=== PATIENT | male | born 1970 | race Two or more races ===

== ENCOUNTER 2017-01-20 15:28 | Inpatient (IN) | payer OTHER ==
--- NOTE | 2017-01-20 16:16 | EDM.PDOC ---
ED HPI GENERAL MEDICAL PROBLEM - General Chief Complaint: Behavioral/Psych Stated Complaint: LAW ENFORCEMENT Time Seen by Provider: 01/20/17 15:55 Source of Information: Reports: Patient History Limitations: Reports: No Limitations - History of Present Illness INITIAL COMMENTS - FREE TEXT/NARRATIVE: Patient is a 46-year-old male who presents to ED in PD custody with suicidal ideations and plan in place. Patient states he moved from [place] to [place] one year prior. States over the past 2 months he has not been able to reconcile with his girlfriend. States she will not communicate with him and has a new boyfriend. Patient has no family in [place] and is all alone. [facility] he drinks 10 beers every day has been doing this for 20+ years. States he is an alcoholic and has undergone inpatient treatment approximately 4 years ago. [facility] he has detoxed from alcohol 2-3 times. States when this occurs he becomes tremulous and becomes very anxious. He denies any history of seizures. States last month he tried to hang himself from the shower curtain ally that eventually broke. [facility] he wants to kill himself and has a plan to hang himself again. Last drink was one hour ago. He has no additional past medical history and is currently taking no medications. He has no surgical history as well. [facility] he also smokes one pack per day and utilizes marijuana. He has no primary care provider and works at [employer]. Onset: Unknown/Unsure - Related Data Allergies Allergy/AdvReac Type Severity Reaction Status Date / Time No Known Allergies Allergy Verified 06/27/16 04:42 Home Meds: Home Meds . [No Known Home Meds] 06/27/16 [History] Past Medical History - Past Surgical History HEENT Surgical History: Reports: ADÁN Social & Family History - Tobacco Use Smoking Status *Q: Current Every Day Smoker Years of Tobacco use: 25 Packs/Tins Daily: 1 Used Tobacco, but Quit: No - Caffeine Use Caffeine Use: Reports: Soda - Recreational Drug Use Recreational Drug Use: Yes Drug Use in Last 12 Months: Yes Recreational Drug Type: Reports: Marijuana/Hashish ED ROS GENERAL - Review of Systems Review Of Systems: See Below Constitutional: Reports: No Symptoms HEENT: Denies: Vision Change Respiratory: Reports: No Symptoms Cardiovascular: Reports: No Symptoms GI/Abdominal: Reports: No Symptoms : Reports: No Symptoms Musculoskeletal: Reports: No Symptoms Neurological: Reports: No Symptoms Psychiatric: Reports: Anxiety, Depression, Hallucinations (auditory), Suicidal Ideation. Denies: Homicidal Ideation ED EXAM, BEHAVIORAL HEALTH - Physical Exam Exam: See Below Exam Limited By: Intoxication General Appearance: Alert, WD/WN, No Apparent Distress Eye Exam: Bilateral Eye: EOMI, Nystagmus, PERRL Ears: Hearing Grossly Normal Nose: Normal Inspection Throat/Mouth: Normal Inspection, Normal Oropharynx, Normal Voice, No Airway Compromise Neck: Normal Inspection, Supple Respiratory/Chest: No Respiratory Distress, Lungs Clear, Normal Breath Sounds, No Accessory Muscle Use Cardiovascular: Normal Peripheral Pulses, Regular Rate, Rhythm, No Murmur GI/Abdominal: Normal Bowel Sounds, Soft, Non-Tender, No Organomegaly, No Distention Back Exam: Normal Inspection Extremities: Normal Inspection Neurological: Alert, Normal Mood/Affect, CN II-XII Intact, Normal Cognition, Normal Gait, No Motor/Sensory Deficits, Oriented x 3 Psychiatric: Alert, Normal Affect, Normal Cognition, Normal Mood, Oriented, Suicidal Plan, Suicidal Thoughts. No: Poor Eye Contact, Homicidal Thoughts, Auditory Hallucinations, Visual Hallucinations, Pressured Speech Skin Exam: Warm, Intact, Normal color, No rash COURSE, BEHAVIORAL HEALTH COMP - Course Vital Signs: Last Vital Signs Temp 98.2 F 01/21/17 00:00 Pulse 97 01/21/17 00:00 Resp 22 H 01/21/17 00:00 BP 108/70 01/21/17 00:00 Pulse Ox 96 01/21/17 00:00 Orders, Labs, Meds: Active Orders 24 hr Category Date Time Status Peripheral IV Care [RC] . DIRECTED Care 01/20/17 15:41 Active Sodium Chloride 0.9% [Saline Flush] Med 01/20/17 15:40 Active 10 ml FLUSH ASDIRECTED PRN Peripheral IV Insertion Adult [OM.PC] Stat Oth 01/20/17 15:41 Ordered Medication Orders Chlordiazepoxide HCl (Librium) 25 mg PO TID PRN PRN Reason: Anxiety Last Admin: 01/20/17 20:56 Dose: 25 mg Clonidine HCl (Catapres) 0.1 mg PO Q12HR STEPHEN Last Admin: 01/20/17 20:57 Dose: Not Given Enoxaparin Sodium (Lovenox) 40 mg SUBCUT DAILY [facility] Haloperidol Lactate (Haldol) 1 mg IVPUSH Q8H PRN PRN Reason: restlessness Last Admin: 01/21/17 00:12 Dose: 1 mg Lactated Ringer's (Ringers, Lactated) 1,000 mls @ 100 mls/hr IV ASDIRECTED STEPHEN Stop: 01/21/17 06:00 Lorazepam (Ativan) 1 mg IVPUSH Q6H PRN PRN Reason: Anxiety Last Admin: 01/21/17 00:29 Dose: 1 mg Metoprolol Tartrate (Lopressor) 5 mg IVPUSH Q6H PRN PRN Reason: heart rate>120 Miscellaneous Information (Remove Patch) 1 ea TRDERM DAILY [facility] Nicotine (Habitrol) 21 mg TRDERM DAILY [facility] Nicotine Polacrilex (Nicorelief) 4 mg CHEW Q1H PRN PRN Reason: Other Last Admin: 01/21/17 00:11 Dose: 4 mg Sodium Chloride (Saline Flush) 10 ml FLUSH ASDIRECTED PRN PRN Reason: Keep Vein Open Last Admin: 01/20/17 16:48 Dose: 10 ml Laboratory Tests 01/20/17 01/20/17 01/20/17 Range/Units 16:26 16:26 16:26 WBC 5.49 (4.23-9.07) K/mm3 RBC 5.01 (4.63-6.08) M/mm3 Hgb 16.3 (13.7-17.5) gm/L Hct 47.3 (40.1-51.0) % MCV 94.4 H (79.0-92.2) fl MCH 32.5 H (25.7-32.2) pg MCHC 34.5 (32.2-35.5) g/dl RDW Std Deviation 43.8 (35.1-43.9) fL Plt Count 176 (163-337) K/mm3 MPV 9.5 (9.4-12.3) fl Neut % (Auto) 34.8 (34.0-67.9) % Lymph % (Auto) 52.1 (21.8-53.1) % [place] % (Auto) 9.3 (5.3-12.2) % Eos % (Auto) 3.3 (0.8-7.0) Baso % (Auto) 0.5 (0.1-1.2) % Neut # (Auto) 1.91 (1.78-5.38) K/mm3 Lymph # (Auto) 2.86 (1.32-3.57) K/mm3 [place] # (Auto) 0.51 (0.30-0.82) K/mm3 Eos # (Auto) 0.18 (0.04-0.54) K/mm3 Baso # (Auto) 0.03 (0.01-0.08) K/mm3 PT (8.0-13.0) SECONDS INR Sodium 144 (136-145) mEq/L Potassium 3.9 (3.5-5.1) mEq/L Chloride 106 (98-107) mEq/L Carbon Dioxide 23 (21-32) mEq/L Anion Gap 18.9 H (5-15) BUN 5 L (7-18) mg/dL Creatinine 0.8 (0.7-1.3) mg/dL Est Cr Clr Drug Dosing 111.63 mL/min Estimated GFR (MDRD) > 60 (>60) mL/min BUN/Creatinine Ratio 6.3 L (14-18) Glucose 96 (74-106) mg/dL Calcium 8.7 (8.5-10.1) mg/dL Magnesium 2.2 (1.8-2.4) mg/dl Total Bilirubin 0.2 (0.2-1.0) mg/dL AST 64 H (15-37) U/L ALT 124 H (16-63) U/L Alkaline Phosphatase 96 (46-116) U/L Total Protein 7.3 (6.4-8.2) g/dl Albumin 3.8 (3.4-5.0) g/dl Globulin 3.5 gm/dL Albumin/Globulin Ratio 1.1 (1-2) TSH 3rd Generation 0.617 (0.358-3.74) uIU/mL Ethyl Alcohol 0.30 (0.00) gm% 01/20/17 Range/Units 16:26 WBC (4.23-9.07) K/mm3 RBC (4.63-6.08) M/mm3 Hgb (13.7-17.5) gm/L Hct (40.1-51.0) % MCV (79.0-92.2) fl MCH (25.7-32.2) pg MCHC (32.2-35.5) g/dl RDW Std Deviation (35.1-43.9) fL Plt Count (163-337) K/mm3 MPV (9.4-12.3) fl Neut % (Auto) (34.0-67.9) % Lymph % (Auto) (21.8-53.1) % [place] % (Auto) (5.3-12.2) % Eos % (Auto) (0.8-7.0) Baso % (Auto) (0.1-1.2) % Neut # (Auto) (1.78-5.38) K/mm3 Lymph # (Auto) (1.32-3.57) K/mm3 [place] # (Auto) (0.30-0.82) K/mm3 Eos # (Auto) (0.04-0.54) K/mm3 Baso # (Auto) (0.01-0.08) K/mm3 PT 10.0 (8.0-13.0) SECONDS INR 0.92 Sodium (136-145) mEq/L Potassium (3.5-5.1) mEq/L Chloride (98-107) mEq/L Carbon Dioxide (21-32) mEq/L Anion Gap (5-15) BUN (7-18) mg/dL Creatinine (0.7-1.3) mg/dL Est Cr Clr Drug Dosing mL/min Estimated GFR (MDRD) (>60) mL/min BUN/Creatinine Ratio (14-18) Glucose (74-106) mg/dL Calcium (8.5-10.1) mg/dL Magnesium (1.8-2.4) mg/dl Total Bilirubin (0.2-1.0) mg/dL AST (15-37) U/L ALT (16-63) U/L Alkaline Phosphatase (46-116) U/L Total Protein (6.4-8.2) g/dl Albumin (3.4-5.0) g/dl Globulin gm/dL Albumin/Globulin Ratio (1-2) TSH 3rd Generation (0.358-3.74) uIU/mL Ethyl Alcohol (0.00) gm% Medications Generic Name Dose Route Start Last Admin Trade Name Freq PRN Reason Stop Dose Admin Chlordiazepoxide HCl 25 mg 01/20/17 20:20 01/20/17 20:56 Librium PO 25 mg TID PRN Administration Anxiety Clonidine HCl 0.1 mg 01/20/17 21:00 01/20/17 20:57 Catapres PO Not Given Q12HR [facility] Enoxaparin Sodium 40 mg 01/21/17 09:00 Lovenox SUBCUT DAILY STEPHEN Haloperidol Lactate 1 mg 01/20/17 20:30 01/21/17 00:12 Haldol IVPUSH 1 mg Q8H PRN Administration restlessness Lactated Ringer's 1,000 mls @ 100 mls/hr 01/20/17 20:30 Ringers, Lactated IV 01/21/17 06:00 ASDIRECTED STEPHEN Lorazepam 1 mg 01/20/17 20:30 01/21/17 00:29 Ativan IVPUSH 1 mg Q6H PRN Administration Anxiety Metoprolol Tartrate 5 mg 01/20/17 20:18 Lopressor IVPUSH Q6H PRN heart rate>120 Miscellaneous Information 1 ea 01/21/17 09:00 Remove Patch TRDERM DAILY [facility] Nicotine 21 mg 01/21/17 09:00 Habitrol TRDERM DAILY [facility] Nicotine Polacrilex 4 mg 01/21/17 00:02 01/21/17 00:11 Nicorelief CHEW 4 mg Q1H PRN Administration Other Sodium Chloride 10 ml 01/20/17 15:40 01/20/17 16:48 Saline Flush FLUSH 10 ml ASDIRECTED PRN Administration Keep Vein Open Discontinued Medications Generic Name Dose Route Start Last Admin Trade Name Daveq PRN Reason Stop Dose Admin Sodium Chloride 2,000 mls @ 500 mls/hr 01/20/17 16:31 01/20/17 20:56 Normal Saline IV 01/20/17 20:30 Infused ONETIME ONE Infusion Magnesium Sulfate 2 gm/ Premix 50 mls @ 25 mls/hr 01/20/17 20:24 01/20/17 20: 56 IV 01/20/17 22:23 25 mls/hr ONETIME ONE Administration Lorazepam 1 mg 01/20/17 16:30 01/20/17 16:47 Ativan IVPUSH 01/20/17 16:31 1 mg ONETIME ONE Administration Lorazepam 2 mg 01/20/17 20:19 Ativan IVPUSH Q8H PRN Anxiety Nicotine 21 mg 01/21/17 00:04 01/21/17 00:12 Habitrol TRDERM 01/21/17 00:05 21 mg ONETIME ONE Administration Re-Assessment/Re-Exam: Ordered a peripheral IV. Initial labs and studies include CBC, C14, TSH, ETOH, MG, PT/INR, and Urine Drug Tox. Ordered ativan 1mg IVP and NS 500mls/hr. 1647 EKG revealed sinus rhythm and his rate is 73 MO interval [address] elevation on a normal early repolarization pattern. No additional findings noted. White blood cell count 5.49, hemoglobin 16.3, platelets 176, sodium 144, potassium 3.9, creatinine 0.8, glucose 96, AST 64, ALT 24, TSH 0.617, ETOH 0.30. 1844 Dr. Cheema is in the E.D. I have discussed patient with her. She will see the patient. 1934 She has agreed to admit the patient to ICU. Departure - Departure Time of Disposition: 19:35 Disposition: Admitted As Inpatient 66 Condition: fair Clinical Impression: Suicidal ideations, Alcohol abuse - Discharge Information - My Orders Last 24 Hours: My Active Orders 01/20/17 15:40 Sodium Chloride 0.9% [Saline Flush] 10 ml FLUSH ASDIRECTED PRN 01/20/17 15:41 Peripheral IV Care [RC] . DIRECTED Peripheral IV Insertion Adult [OM.PC] Stat - Assessment/Plan Last 24 Hours: My Active Orders 01/20/17 15:40 Sodium Chloride 0.9% [Saline Flush] 10 ml FLUSH ASDIRECTED PRN 01/20/17 15:41 Peripheral IV Care [RC] . DIRECTED Peripheral IV Insertion Adult [OM.PC] Stat
[2017-01-20] MEDS ORDERED: LORazepam 2 MG/ML MDV IVPUSH ONE (16:30)
[2017-01-20] MEDS ORDERED: Sodium Chloride 0.9% 2,000 ML IV ONE (16:31)
[2017-01-20] MEDS: Sodium Chloride 0.9% 10 ML Syringe FLUSH PRN (16:48)
--- NOTE | 2017-01-20 20:13 | PCM.HP ---
H&P History of Present Illness - General Date of Service: 01/20/17 Admit Problem/Dx: Admission Diagnosis/Problem Admission Diagnosis/Problem Alcohol abuse Source of Information: Patient, Provider History Limitations: Reports: No Limitations - History of Present Illness Initial Comments - Free Text/Narative: 46 year old male with relationship difficulties, ETOH abuse/dependence presented to ED in Police Custody after stating that he tried to hurt himself. He has been scheduled for an evaluation by Dr Velásquez, and a request for the substance abuse counselor will be made for this weekend. Expeditious evaluation is sought for treatment, the patient stated that he wanted help in the ED. An involuntary commitment was initially discussed in the ED, this was not completed. Thus ETOH withdrawal and subsequent treatment will be initiated. He is originally from [place], has lived extensively in [place], [place]. He is currently working in [place], [place] with minimal emotional support. He has attempted suicide by trying to hang from a shower ally; on presentation today, he mentioned that he wanted to kill himself because he has had trouble with his current girlfriend. He has a history of substnace abuse with ETOH and marijuana. ETOH level at the time of presentation, 0.33. UDS is presumptively positive. The patient has previously had IP treatment. Denies blacking out, or alcohol withdrawal seizures. Onset of Symptoms: Reports: Sudden Symptom Onset Date: 01/20/17 Duration of Symptoms: Reports: Hour(s):, Getting Worse Location: Reports: Generalized Quality: Reports: Same as Previous Episode Improves with: Reports: Medication Worsens with: Reports: None Associated Symptoms: Reports: Confusion, Other (depression/anxiety) - Related Data Allergies/Adverse Reactions: Allergies Allergy/AdvReac Type Severity Reaction Status Date / Time No Known Allergies Allergy Verified 06/27/16 04:42 Home Medications: Home Meds . [No Known Home Meds] 06/27/16 [History] Past Medical History - Past Surgical History HEENT Surgical History: Reports: ADÁN Social & Family History - Tobacco Use Smoking Status *Q: Current Every Day Smoker Years of Tobacco use: 25 Packs/Tins Daily: 1 Used Tobacco, but Quit: No - Caffeine Use Caffeine Use: Reports: Soda - Recreational Drug Use Recreational Drug Use: Yes Drug Use in Last 12 Months: Yes Recreational Drug Type: Reports: Marijuana/Hashish H&P Review of Systems - Review of Systems: Review Of Systems: See Below General: Reports: No Symptoms HEENT: Reports: No Symptoms Pulmonary: Reports: No Symptoms Cardiovascular: Reports: Palpitations Gastrointestinal: Reports: No Symptoms Genitourinary: Reports: No Symptoms Musculoskeletal: Reports: No Symptoms Skin: Reports: No Symptoms Psychiatric: Reports: Depression, Mood Lability, Anxiety, Hallucinations ( auditory), Suicidal Ideation Neurological: Reports: No Symptoms, Dizziness Hematologic/Lymphatic: Reports: No Symptoms Immunologic: Reports: No Symptoms Exam - Exam Exam: See Below - Vital Signs Vital Signs: Last Vital Signs Temp 36.2 C 01/20/17 15:29 Pulse 87 01/20/17 15:29 Resp 16 01/20/17 15:29 BP 125/71 01/20/17 15:29 Pulse Ox 97 01/20/17 15:29 Weight: 76.204 kg - Exam Quality Assessment: Supplemental Oxygen, DVT Prophylaxis General: Alert, Oriented, Cooperative, Mild Distress HEENT: Conjunctiva Clear, Nares Patent, Normal Nasal Septum, Pupils Equal, Pupils Reactive Neck: Supple, Trachea Midline Lungs: Normal Respiratory Effort, Decreased Breath Sounds Cardiovascular: Regular Rate, Tachycardia Abdomen: Normal Bowel Sounds, Soft (Male) Exam: Deferred Rectal (Males) Exam: Deferred Back Exam: Normal Inspection Extremities: Normal Pulses Skin: Warm Neurological: Cranial Nerves Intact, Reflexes Equal Bilateral, Strength Equal Bilateral, Normal Speech Neuro Extensive - Mental Status: Alert, Oriented x3 Neuro Extensive - Motor, Sensory, Reflexes: CN II-XII Intact Psychiatric: Alert, Anxious, Depressed, Hallucinations, Withdrawal Symptoms - Patient Data Result Diagrams: 01/21/17 05:35 01/21/17 05:35 *Q Meaningful Use (ADM) - VTE *Q VTE Criteria *Q: - Stroke *Q Stroke Criteria *Q: - AMI *Q AMI Criteria *Q: - Problem List (1) Anxiety and depression SNOMED Code(s): 769944300 ICD Code: F41.9 - ANXIETY DISORDER, UNSPECIFIED; F32.9 - MAJOR DEPRESSIVE DISORDER, SINGLE EPISODE, UNSPECIFIED Status: Acute Current Visit: Yes (2) Alcohol abuse SNOMED Code(s): 60579962 ICD Code: F10.10 - ALCOHOL ABUSE, UNCOMPLICATED Status: Acute Current Visit: Yes (3) Suicidal ideations SNOMED Code(s): 3527165, 212278400 ICD Code: R45.851 - SUICIDAL IDEATIONS Status: Acute Current Visit: Yes (4) Marijuana abuse SNOMED Code(s): 29080855 ICD Code: F12.10 - CANNABIS ABUSE, UNCOMPLICATED Status: Acute Current Visit: Yes Problem List Initiated/Reviewed/Updated: Yes Orders Last 24hrs: Medication Orders Sodium Chloride (Normal Saline) 2,000 mls @ 500 mls/hr IV ONETIME ONE Stop: 01/20/17 20:30 Last Admin: 01/20/17 16:47 Dose: 500 mls/hr Sodium Chloride (Saline Flush) 10 ml FLUSH ASDIRECTED PRN PRN Reason: Keep Vein Open Last Admin: 01/20/17 16:48 Dose: 10 ml Assessment/Plan Comment:: Impression: ETOH Dependence, withdrawal symptom with suicidal ideation and auditory hallucinations Marijuana Dependence Anxiety/Depression Tobacco Dependence Plan: IVF CIWA protocol Anti-anxiety meds, scheduled and prn Electrolyte replacement as needed. Suicide precaution Habitrol SW/PT/OT SA/Psych evaulations DVT/GI prophylaxis
[2017-01-20] MEDS ORDERED: Metoprolol Tartrate 5 MG/5 ML SDV IVPUSH PRN (20:18)
[2017-01-20] MEDS ORDERED: LORazepam 2 MG/ML MDV IVPUSH PRN (20:19)
[2017-01-20] MEDS ORDERED: Magnesium Sulfate/Water 2 GM in Premix Bag 1 BAG IV ONE (20:24)
[2017-01-20] MEDS ORDERED: Haloperidol Lactate 5 MG/ML SDV IVPUSH PRN (20:30)
[2017-01-20] MEDS ORDERED: Lactated Ringers 1,000 ML IV SCH (20:30)
[2017-01-20] MEDS: chlordiazePOXIDE 25 MG Cap PO PRN (20:56)
[2017-01-20] MEDS: cloNIDine 0.1 MG Tab PO SCH (20:57)
[2017-01-21] MEDS ORDERED: Nicotine Polacrilex 2 MG Gum CHEW PRN (00:02)
[2017-01-21] MEDS ORDERED: Nicotine 21 MG/24 Hr Patch TRDERM ONE (00:04)
[2017-01-21] MEDS: LORazepam 2 MG/ML MDV IVPUSH PRN ×2 (00:29→02:40)
[2017-01-21] MEDS ORDERED: Temazepam 15 MG Cap PO PRN (02:25)
[2017-01-21] MEDS ORDERED: LORazepam 2 MG/ML MDV IVPUSH PRN (02:25)
[2017-01-21] MEDS: chlordiazePOXIDE 25 MG Cap PO PRN (08:07)
[2017-01-21] MEDS: cloNIDine 0.1 MG Tab PO SCH ×2 (08:08→17:15)
[2017-01-21] MEDS: Enoxaparin 40 MG/0.4 ML Syringe SUBCUT SCH (08:08)
[2017-01-21] MEDS: Nicotine 21 MG/24 Hr Patch TRDERM SCH (08:08)
[2017-01-21] MEDS: QUEtiapine 25 MG Tab PO SCH ×2 (11:31→20:56)
[2017-01-21] MEDS: Folic Acid 1 MG Tab PO SCH (11:31)
[2017-01-21] MEDS: FLUoxetine 20 MG Cap PO SCH (11:32)
[2017-01-21] MEDS: Topiramate 25 MG Tab PO SCH ×2 (11:32→20:48)
--- NOTE | 2017-01-21 15:25 | PCM.PN ---
- General Info Date of Service: 01/21/17 Functional Status: Reports: pain controlled, tolerating diet, ambulating, urinating - Review of Systems General: Reports: No Symptoms HEENT: Reports: no symptoms Pulmonary: Reports: no symptoms Cardiovascular: Reports: No Symptoms Gastrointestinal: Reports: No symptoms Genitourinary: Reports: no symptoms Musculoskeletal: Reports: no symptoms Skin: Reports: no symptoms Neurological: Reports: No Symptoms Psychiatric: Reports: depression - Patient Data Vitals - most recent: Last Vital Signs Temp 36.6 C 01/21/17 12:00 Pulse 93 01/21/17 12:00 Resp 22 H 01/21/17 12:00 BP 151/88 H 01/21/17 12:00 Pulse Ox 100 01/21/17 12:00 Weight - most recent: 76.204 kg I&O - last 24 hours: Intake & Output 01/21/17 01/21/17 01/21/17 06:59 14:59 22:59 Intake Total 2000 800 Output Total 1250 Balance 750 800 Lab Results last 24 hrs: Laboratory Results - last 24 hr 01/20/17 01/21/17 01/21/17 Range/Units 20:41 05:35 05:35 WBC 5.40 (4.23-9.07) K/mm3 RBC 4.51 L (4.63-6.08) M/mm3 Hgb 14.8 (13.7-17.5) gm/L Hct 43.4 (40.1-51.0) % MCV 96.2 H (79.0-92.2) fl MCH 32.8 H (25.7-32.2) pg MCHC 34.1 (32.2-35.5) g/dl RDW Std Deviation 45.1 H (35.1-43.9) fL Plt Count 181 (163-337) K/mm3 MPV 9.8 (9.4-12.3) fl Neut % (Auto) 55.4 (34.0-67.9) % Lymph % (Auto) 33.0 (21.8-53.1) % Jerome % (Auto) 9.1 (5.3-12.2) % Eos % (Auto) 1.7 (0.8-7.0) Baso % (Auto) 0.6 (0.1-1.2) % Neut # (Auto) 3.00 (1.78-5.38) K/mm3 Lymph # (Auto) 1.78 (1.32-3.57) K/mm3 Jerome # (Auto) 0.49 (0.30-0.82) K/mm3 Eos # (Auto) 0.09 (0.04-0.54) K/mm3 Baso # (Auto) 0.03 (0.01-0.08) K/mm3 Sodium 143 (136-145) mEq/L Potassium 4.0 (3.5-5.1) mEq/L Chloride 109 H (98-107) mEq/L Carbon Dioxide 23 (21-32) mEq/L Anion Gap 15.0 (5-15) BUN 7 (7-18) mg/dL Creatinine 0.9 (0.7-1.3) mg/dL Est Cr Clr Drug Dosing 99.22 mL/min Estimated GFR (MDRD) > 60 (>60) mL/min BUN/Creatinine Ratio 7.8 L (14-18) Glucose 81 (74-106) mg/dL Calcium 8.0 L (8.5-10.1) mg/dL Magnesium 2.2 (1.8-2.4) mg/dl Urine Opiates Screen Negative (NEGATIVE) Ur Buprenorphine Scrn Negative (NEGATIVE) Ur Oxycodone Screen Negative (NEGATIVE) Urine Methadone Screen Negative (NEGATIVE) Ur Propoxyphene Screen Negative (NEGATIVE) Ur Barbiturates Screen Negative (NEGATIVE) Ur Tricyclics Screen Negative (NEGATIVE) Ur Phencyclidine Scrn Negative (NEGATIVE) Ur Amphetamine Screen Negative (NEGATIVE) U Methamphetamines Scrn Negative (NEGATIVE) U Benzodiazepines Scrn Negative (NEGATIVE) U Cocaine Metab Screen Negative (NEGATIVE) U Marijuana (THC) Screen Presumptive positive H (NEGATIVE) Ethyl Alcohol 0.01 (0.00) gm% Med Orders - Current: Current Medications Chlordiazepoxide HCl (Librium) 25 mg PO TID PRN PRN Reason: Anxiety Last Admin: 01/21/17 08:07 Dose: 25 mg Clonidine HCl (Catapres) 0.1 mg PO Q12HR STEPHEN Last Admin: 01/21/17 08:08 Dose: 0.1 mg Enoxaparin Sodium (Lovenox) 40 mg SUBCUT DAILY STEPHEN Last Admin: 06/03/17 08:08 Dose: 40 mg Fluoxetine HCl (Prozac) 20 mg PO DAILY [facility] Last Admin: 01/21/17 11:32 Dose: 20 mg Folic Acid (Folic Acid) 1 mg PO DAILY [facility] Last Admin: 01/21/17 11:31 Dose: 1 mg Haloperidol Lactate (Haldol) 1 mg IVPUSH Q8H PRN PRN Reason: restlessness Last Admin: 01/21/17 00:12 Dose: 1 mg Lorazepam (Ativan) 1 mg IVPUSH Q6H PRN PRN Reason: Anxiety Last Admin: 01/21/17 02:40 Dose: 1 mg Lorazepam (Ativan) 1 mg IVPUSH Q2H PRN PRN Reason: Withdrawal Symptoms Last Admin: 01/21/17 14:20 Dose: 1 mg Metoprolol Tartrate (Lopressor) 5 mg IVPUSH Q6H PRN PRN Reason: heart rate>120 Miscellaneous Information (Remove Patch) 1 ea TRDERM DAILY [facility] Last Admin: 01/21/17 11:32 Dose: 1 ea Nicotine (Habitrol) 21 mg TRDERM DAILY [facility] Last Admin: 01/21/17 08:08 Dose: 21 mg Nicotine Polacrilex (Nicorelief) 4 mg CHEW Q1H PRN PRN Reason: Other Last Admin: 01/21/17 00:11 Dose: 4 mg Quetiapine Fumarate (Seroquel) 50 mg PO BEDTIME [facility] Last Admin: 01/21/17 11:31 Dose: 50 mg Sodium Chloride (Saline Flush) 10 ml FLUSH ASDIRECTED PRN PRN Reason: Keep Vein Open Last Admin: 01/20/17 16:48 Dose: 10 ml Temazepam (Restoril) 15 mg PO BEDTIME PRN PRN Reason: Insomnia Thiamine HCl (Vitamin B-1) 100 mg PO BEDTIME [facility] Topiramate (Topamax) 25 mg PO BID STEPHEN Stop: 01/27/17 21:01 Last Admin: 01/21/17 11:32 Dose: 25 mg Topiramate (Topamax) 50 mg PO BID [facility] Discontinued Medications Sodium Chloride (Normal Saline) 2,000 mls @ 500 mls/hr IV ONETIME ONE Stop: 01/20/17 20:30 Last Infusion: 01/20/17 20:56 Dose: Infused Magnesium Sulfate 2 gm/ Premix 50 mls @ 25 mls/hr IV ONETIME ONE Stop: 01/20/17 22:23 Last Admin: 01/20/17 20:56 Dose: 25 mls/hr Lactated Ringer's (Ringers, Lactated) 1,000 mls @ 100 mls/hr IV ASDIRECTED STEPHEN Stop: 01/21/17 06:00 Lorazepam (Ativan) 1 mg IVPUSH ONETIME ONE Stop: 01/20/17 16:31 Last Admin: 01/20/17 16:47 Dose: 1 mg Lorazepam (Ativan) 2 mg IVPUSH Q8H PRN PRN Reason: Anxiety Nicotine (Habitrol) 21 mg TRDERM ONETIME ONE Stop: 01/21/17 00:05 Last Admin: 01/21/17 00:12 Dose: 21 mg - Exam Quality Assessment: supplemental oxygen, DVT prophylaxis General: alert, oriented, cooperative, no acute distress HEENT: Pupils equal, Pupils reactive, EOMI Neck: supple, trachea midline, no JVD Lungs: Clear to auscultation, Normal respiratory effort Cardiovascular: Regular Rate, Regular Rhythm Abdomen: bowel sounds present, soft, no tenderness, no distension (Male) Exam: Deferred Back Exam: Normal Inspection Extremities: normal pulses Skin: warm Neurological: no new focal deficit, normal gait, normal speech Psy/Mental Status: alert, depressed - Problem List & Annotations (1) Anxiety and depression SNOMED Code(s): 925615529 Code(s): F41.9 - ANXIETY DISORDER, UNSPECIFIED; F32.9 - MAJOR DEPRESSIVE DISORDER, SINGLE EPISODE, UNSPECIFIED Status: Acute Current Visit: Yes (2) Alcohol abuse SNOMED Code(s): 22365352 Code(s): F10.10 - ALCOHOL ABUSE, UNCOMPLICATED Status: Acute Current Visit: Yes (3) Suicidal ideations SNOMED Code(s): 6204812, 878799000 Code(s): R45.851 - SUICIDAL IDEATIONS Status: Acute Current Visit: Yes (4) Marijuana abuse SNOMED Code(s): 81484282 Code(s): F12.10 - CANNABIS ABUSE, UNCOMPLICATED Status: Acute Current Visit: Yes - Problem List Review Problem List Initiated/Reviewed/Updated: Yes - My Orders Last 24 Hours: My Active Orders 01/20/17 20:14 Activity as Tolerated [RC] .Routine Vital Signs [RC] Q4HR 06/02/17 20:15 CIWAA Assessment [RC] Q1HR Suicide Precautions BH [BH] Routine Code Status [Resuscitation Status] Routine 01/20/17 20:17 Notify Provider Consults [RC] ASDIRECTED 01/20/17 20:18 Metoprolol Tartrate [Lopressor] 5 mg IVPUSH Q6H PRN 01/20/17 20:20 chlordiazePOXIDE [Librium] 25 mg PO TID PRN 01/20/17 20:27 Antiembolic Devices [RC] PER UNIT ROUTINE LEYLA Hose [Antiembolic Hose] [OM.PC] Routine 01/20/17 20:30 Haloperidol Lactate [Haldol] 1 mg IVPUSH Q8H PRN LORazepam [Ativan] 1 mg IVPUSH Q6H PRN 01/20/17 21:00 cloNIDine [Catapres] 0.1 mg PO Q12HR 01/21/17 00:02 Nicotine Polacrilex [Nicorelief] 4 mg CHEW Q1H PRN 01/21/17 02:25 LORazepam [Ativan] 1 mg IVPUSH Q2H PRN Temazepam [Restoril] 15 mg PO BEDTIME PRN 01/21/17 09:00 Consult to Physician [CONS] Routine Enoxaparin [Lovenox] 40 mg SUBCUT DAILY Nicotine [Habitrol] 21 mg TRDERM DAILY Remove Patch 1 ea TRDERM DAILY 01/21/17 10:00 Consult for Substance Abuse [CONS] Routine 01/21/17 Breakfast Regular Diet [DIET] 01/22/17 05:00 BMP [BASIC METABOLIC PANEL,BMP] [CHEM] DAILY CBC WITH AUTO DIFF [HEME] DAILY MAGNESIUM [CHEM] DAILY 01/23/17 05:00 BMP [BASIC METABOLIC PANEL,BMP] [CHEM] DAILY CBC WITH AUTO DIFF [HEME] DAILY MAGNESIUM [CHEM] DAILY 01/24/17 05:00 BMP [BASIC METABOLIC PANEL,BMP] [CHEM] DAILY CBC WITH AUTO DIFF [HEME] DAILY MAGNESIUM [CHEM] DAILY 01/28/17 09:00 Topiramate [Topamax] 50 mg PO BID - Plan Plan:: Impression: ETOH Dependence, withdrawal symptom with suicidal ideation and auditory hallucinations Marijuana Dependence Anxiety/Depression-new meds per Dr Velásquez Tobacco Dependence Plan: IVF CIWA protocol Anti-anxiety meds, scheduled and prn Electrolyte replacement as needed. Suicide precaution Habitrol SW/PT/OT SA-await consult/Psych evaluations DVT/GI prophylaxis
--- NOTE | 2017-01-21 17:51 | CONS ---
CONSULTING PHYSICIAN: Hussain Velásquez MD DATE OF CONSULTATION: 01/21/2017 Date of service for this 60 minute inpatient clinical event is 01/21/2017. IDENTIFICATION: The patient is a 46-year-old male, who was admitted to the MICU at [facility] in [place], [place] on 01/20/2017. He is seen for psychiatric evaluation. CHIEF COMPLAINT: "I got depression." HISTORY OF PRESENT ILLNESS: The patient is a 46-year-old male who reports he has been struggling with depressed mood "off and on for the past 4 years." The patient states that he has recently been having relationship problems with girlfriend who lived down in [place]. He states that complicating this clinical situation is the fact that he has been drinking "about 10 beers a day." He is smoking "about 3 joints a day." The patient states he has been in treatment in the past, but his longest sobriety has been for about 2 weeks. He does have some mood swings. He has quite a bit of anxiety and he reports racing thoughts and ruminations. He states he sleeps poorly and can not get more than 6 hours of sleeps per 24-hour period. He does not feel this is enough for him. He states before he was admitted yesterday, he was feeling suicidal and this was one of the main reasons that he was admitted. He is denying any suicidal or homicidal at this point in time, but he does state that he tried to hang himself about a month ago "but the rope broke." He again is denying any suicidal now and he states that when he has relationship problems, he tends to drink and when he drinks, the suicidal thoughts are worse. The patient is stating that he had been on medications in the past and the doctors who put him on the medication in the past did feel that it helped him with his depression, but he can't remember what medications he was taking. He is open to try medications for his mood and he is open to getting help for treatment. He states he was hospitalized psychiatrically in the past and he does not want inpatient psychiatric hospitalization or inpatient treatment because he felt it made him worse and he also wants to keep his job at the local [employer] where he has been working for the past year. He states he is open to outpatient chemical dependency treatment if this is possible. He denies having any weapons at his house. He states that he generally has good energy and good interest levels despite his struggles with depression. On admission, his BAL was approximately 0.33 according to staff report and it is down to 0.1 at this point in time. The patient does report a past detox admission for excessive alcohol use. MEDICATIONS: At the time of presentation, none. ALLERGIES: No known drug allergies. PAST MEDICAL HISTORY: The patient denies. REVIEW OF SYSTEMS: Negative at this point in time for acute difficulties involving GI, , pulmonary, cardiac, endocrine, blood, immune, skin, muscular, and nervous systems. FAMILY PSYCHIATRIC AND CD HISTORY: Positive for alcoholism in biological father. Also, maternal grandfather and maternal uncles struggled with alcoholism. PAST PSYCHIATRIC AND CD HISTORY: The patient reports 2 psychiatric hospitalizations in the past. Last one being in 2013 in [place], [place]. He reports 2 chemical dependency treatments in the past. One detox admission back in 2012, done in the [place] as well. Reports 1 suicide attempt by hanging but the rope broke. He states this was about a month ago in the phase of alcohol intoxication. He states his longest sobriety from alcohol has been 2 weeks. He states he has been able stay away for years from marijuana. Denies any self-injurious behaviors or eating disorder history. He states he has never been to AA in the past. He does report a positive psychiatric medication history but could not remember the names of the psych medications he tried in the past and whether they worked or not although he states that providers who were helping him at that time, did feel that he had improved on the psychiatric medications. SOCIAL HISTORY: The patient is born and raised in [place], [place]. He has 5 siblings. His parents when the patient was 10 years of age. He stayed with his mother. Father worked for the [employer] in [place]. Mother was a nurse. The patient's highest level of education was some college courses. 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 He is x1, , had been in a long-term relationship for about 17 years that ended and he has been in current relationship for about 3 years. He has 1 daughter from his marriage. He is currently living by himself in [place], [place] for the past year. He was in the [employer] for 3 years. He received an other than honorable discharge according to his report. Denies any legal difficulties at this point in time. He is Jehovah'S Witness in terms of his tima formation, enjoys watching TV, surfing the Internet, and listen to music in his spare time. MENTAL STATUS EXAMINATION: The patient is a 46-year-old male, in no apparent distress. Speech is of regular rate and rhythm. The patient is cognitively oriented. Psychomotor activities within normal limits. There is no abnormal motor movements or tics observed. Gait and station are not observed. This patient is sitting on the side of the bed for the interview. Mood is depressed. Affect is consistent with stated mood restricted, but cooperative overall for the purposes of the inpatient psychiatric consult. There is no behavioral or stated evidence of acute suicidal or homicidal ideation. No acute psychotic, delusional, or paranoid symptoms. Thought processes are significant for racing thoughts and ruminations, but there is no acute manic symptoms or loose associations evident. Judgment and insight appear unimpaired at this point in time. Motivation for help appears fair to good. VITAL SIGNS: 144/87, 85, 20, 98.4 degrees. IMPRESSION: Pfeifer I. 1. Alcohol dependence, F10.20. 2. Major depressive disorder, recurrent, F33.3. 3. Anxiety disorder, NOS, F41.9. 4. Cannabis abuse versus dependence. 5. Rule out bipolar affect disease, mixed type. Pfeifer II: None. Pfeifer III: Rule out alcohol withdrawal symptoms. Pfeifer IV: Severe. Pfeifer V: 50. PLAN: 1. Sobriety. 2. AA rep. 3. Pastoral guidance. 4. Seek CD concept to assess the patient for the placement in outpatient chemical dependency treatment on a local basis if possible. 5. [facility] protocol. 6. Folic acid supplementation. 7. Thiamine supplementation. 8. Begin Prozac 20 mg q.a.m. for mood. 9. Begin Seroquel 50 mg at night for sleep initiation and maintenance, anxiety reduction, and mood stability. 10.Begin Topamax 25 mg b.i.d. x7 days. Increase to 50 mg b.i.d. also for mood stability and anxiety reduction as well seizure prophylaxis. 11.When the patient is medically stabilized, he is discharged back to the community and follows up with Outpatient Psychiatry in 2 to 4 weeks. 12.We will continue one-to-one through the day and have primary medical treatment team reassess on 01/22/2017, secondary to the circumstances surrounding his original admission. 13.We will continue follow up with the patient on as needed basis while he remains in the [facility] MICU. 14.We will follow up with the patient sooner if any complications in the interim. 15.Crisis plan is in place. SARBJIT /[id number]
[2017-01-21] MEDS: Thiamine 100 MG Tab PO SCH (20:47)
[2017-01-21] MEDS: Sodium Chloride 0.9% 10 ML Syringe FLUSH PRN (20:52)
[2017-01-22] MEDS: cloNIDine 0.1 MG Tab PO SCH ×3 (00:20→17:23)
[2017-01-22] MEDS: FLUoxetine 20 MG Cap PO SCH (08:28)
[2017-01-22] MEDS: Topiramate 25 MG Tab PO SCH ×2 (08:29→21:10)
[2017-01-22] MEDS: Nicotine 21 MG/24 Hr Patch TRDERM SCH (08:29)
[2017-01-22] MEDS: Folic Acid 1 MG Tab PO SCH (08:29)
[2017-01-22] MEDS: Enoxaparin 40 MG/0.4 ML Syringe SUBCUT SCH (08:30)
[2017-01-22] MEDS ORDERED: Magnesium Sulfate/Water 2 GM in Premix Bag 1 BAG IV ONE (09:36)
[2017-01-22] MEDS: chlordiazePOXIDE 25 MG Cap PO PRN (11:50)
[2017-01-22] MEDS: Magnesium Oxide 400 MG Tab PO SCH (11:50)
[2017-01-22] MEDS ORDERED: LORazepam 2 MG Tab PO PRN (12:16)
--- NOTE | 2017-01-22 13:16 | PCM.PN ---
- General Info Date of Service: 01/22/17 Functional Status: Reports: pain controlled, tolerating diet, ambulating, urinating - Review of Systems General: Reports: No Symptoms HEENT: Reports: no symptoms Pulmonary: Reports: no symptoms Cardiovascular: Reports: No Symptoms Gastrointestinal: Reports: No symptoms Genitourinary: Reports: no symptoms Musculoskeletal: Reports: no symptoms Skin: Reports: no symptoms Neurological: Reports: No Symptoms Psychiatric: Reports: depression - Patient Data Vitals - most recent: Last Vital Signs Temp 36.5 C 01/22/17 08:00 Pulse 103 H 01/21/17 16:00 Resp 18 01/22/17 12:00 BP 120/77 01/22/17 12:00 Pulse Ox 99 01/22/17 12:00 Weight - most recent: 77.111 kg I&O - last 24 hours: Intake & Output 01/21/17 01/22/17 01/22/17 22:59 06:59 14:59 Intake Total 1120 240 360 Output Total 650 Balance 1120 -410 360 Lab Results last 24 hrs: Laboratory Results - last 24 hr 01/22/17 01/22/17 Range/Units 04:30 04:30 WBC 5.94 (4.23-9.07) K/mm3 RBC 4.66 (4.63-6.08) M/mm3 Hgb 15.2 (13.7-17.5) gm/L Hct 44.6 (40.1-51.0) % MCV 95.7 H (79.0-92.2) fl MCH 32.6 H (25.7-32.2) pg MCHC 34.1 (32.2-35.5) g/dl RDW Std Deviation 44.0 H (35.1-43.9) fL Plt Count 181 (163-337) K/mm3 MPV 10.0 (9.4-12.3) fl Neut % (Auto) 54.8 (34.0-67.9) % Lymph % (Auto) 32.7 (21.8-53.1) % Jewell % (Auto) 9.8 (5.3-12.2) % Eos % (Auto) 1.9 (0.8-7.0) Baso % (Auto) 0.5 (0.1-1.2) % Neut # (Auto) 3.26 (1.78-5.38) K/mm3 Lymph # (Auto) 1.94 (1.32-3.57) K/mm3 Jewell # (Auto) 0.58 (0.30-0.82) K/mm3 Eos # (Auto) 0.11 (0.04-0.54) K/mm3 Baso # (Auto) 0.03 (0.01-0.08) K/mm3 Sodium 139 (136-145) mEq/L Potassium 3.8 (3.5-5.1) mEq/L Chloride 107 (98-107) mEq/L Carbon Dioxide 23 (21-32) mEq/L Anion Gap 12.8 (5-15) BUN 8 (7-18) mg/dL Creatinine 0.9 (0.7-1.3) mg/dL Est Cr Clr Drug Dosing 99.22 mL/min Estimated GFR (MDRD) > 60 (>60) mL/min BUN/Creatinine Ratio 8.9 L (14-18) Glucose 108 H (74-106) mg/dL Calcium 8.8 (8.5-10.1) mg/dL Magnesium 1.9 (1.8-2.4) mg/dl Med Orders - Current: Current Medications Chlordiazepoxide HCl (Librium) 25 mg PO TID PRN PRN Reason: Anxiety Last Admin: 01/22/17 11:50 Dose: 25 mg Clonidine HCl (Catapres) 0.2 mg PO Q8H [facility] Last Admin: 01/22/17 08:28 Dose: 0.2 mg Enoxaparin Sodium (Lovenox) 40 mg SUBCUT DAILY [facility] Last Admin: 01/22/17 08:30 Dose: 40 mg Fluoxetine HCl (Prozac) 20 mg PO DAILY [facility] Last Admin: 01/22/17 08:28 Dose: 20 mg Folic Acid (Folic Acid) 1 mg PO DAILY [facility] Last Admin: 01/22/17 08:29 Dose: 1 mg Haloperidol Lactate (Haldol) 1 mg IVPUSH Q8H PRN PRN Reason: restlessness Last Admin: 01/21/17 00:12 Dose: 1 mg Lorazepam (Ativan) 1 mg IVPUSH Q6H PRN PRN Reason: Anxiety Last Admin: 01/21/17 02:40 Dose: 1 mg Lorazepam (Ativan) 1 mg IVPUSH Q2H PRN PRN Reason: Withdrawal Symptoms Last Admin: 01/21/17 14:20 Dose: 1 mg Lorazepam (Ativan) 2 mg PO Q4HR PRN PRN Reason: Anxiety Magnesium Oxide (Magnesium Oxide) 800 mg PO DAILY [facility] Last Admin: 01/22/17 11:50 Dose: 800 mg Metoprolol Tartrate (Lopressor) 5 mg IVPUSH Q6H PRN PRN Reason: heart rate>120 Miscellaneous Information (Remove Patch) 1 ea TRDERM DAILY [facility] Last Admin: 01/22/17 10:25 Dose: Not Given Nicotine (Habitrol) 21 mg TRDERM DAILY [facility] Last Admin: 01/22/17 08:29 Dose: 21 mg Nicotine Polacrilex (Nicorelief) 4 mg CHEW Q1H PRN PRN Reason: Other Last Admin: 01/21/17 00:11 Dose: 4 mg Quetiapine Fumarate (Seroquel) 50 mg PO BEDTIME [facility] Last Admin: 01/21/17 20:56 Dose: 50 mg Sodium Chloride (Saline Flush) 10 ml FLUSH ASDIRECTED PRN PRN Reason: Keep Vein Open Last Admin: 01/21/17 20:52 Dose: 10 ml Temazepam (Restoril) 15 mg PO BEDTIME PRN PRN Reason: Insomnia Thiamine HCl (Vitamin B-1) 100 mg PO BEDTIME [facility] Last Admin: 01/21/17 20:47 Dose: 100 mg Topiramate (Topamax) 25 mg PO BID [facility] Stop: 01/27/17 21:01 Last Admin: 01/22/17 08:29 Dose: 25 mg Topiramate (Topamax) 50 mg PO BID [facility] Discontinued Medications Clonidine HCl (Catapres) 0.1 mg PO Q12HR [facility] Last Admin: 01/21/17 08:08 Dose: 0.1 mg Sodium Chloride (Normal Saline) 2,000 mls @ 500 mls/hr IV ONETIME ONE Stop: 01/20/17 20:30 Last Infusion: 01/20/17 20:56 Dose: Infused Magnesium Sulfate 2 gm/ Premix 50 mls @ 25 mls/hr IV ONETIME ONE Stop: 01/20/17 22:23 Last Admin: 01/20/17 20:56 Dose: 25 mls/hr Lactated Ringer's (Ringers, Lactated) 1,000 mls @ 100 mls/hr IV ASDIRECTED STEPHEN Stop: 01/21/17 06:00 Magnesium Sulfate 2 gm/ Premix 50 mls @ 25 mls/hr IV ONETIME ONE Stop: 01/22/17 11:35 Last Admin: 01/22/17 10:40 Dose: Not Given Lorazepam (Ativan) 1 mg IVPUSH ONETIME ONE Stop: 01/20/17 16:31 Last Admin: 01/20/17 16:47 Dose: 1 mg Lorazepam (Ativan) 2 mg IVPUSH Q8H PRN PRN Reason: Anxiety Nicotine (Habitrol) 21 mg TRDERM ONETIME ONE Stop: 01/21/17 00:05 Last Admin: 01/21/17 00:12 Dose: 21 mg - Exam Quality Assessment: DVT prophylaxis General: alert, oriented, cooperative, no acute distress HEENT: Pupils equal, Pupils reactive, EOMI Neck: supple, trachea midline, no JVD Lungs: Normal respiratory effort Cardiovascular: Regular Rate, Regular Rhythm Abdomen: bowel sounds present, soft, no tenderness, no distension (Male) Exam: Deferred Back Exam: Normal Inspection Extremities: no edema, normal pulses Skin: warm Neurological: normal gait, normal speech Psy/Mental Status: alert, depressed - Problem List & Annotations (1) Anxiety and depression SNOMED Code(s): 168327794 Code(s): F41.9 - ANXIETY DISORDER, UNSPECIFIED; F32.9 - MAJOR DEPRESSIVE DISORDER, SINGLE EPISODE, UNSPECIFIED Status: Acute Current Visit: Yes (2) Alcohol abuse SNOMED Code(s): 71640896 Code(s): F10.10 - ALCOHOL ABUSE, UNCOMPLICATED Status: Acute Current Visit: Yes (3) Suicidal ideations SNOMED Code(s): 9054197, 303170094 Code(s): R45.851 - SUICIDAL IDEATIONS Status: Acute Current Visit: Yes (4) Marijuana abuse SNOMED Code(s): 20808634 Code(s): F12.10 - CANNABIS ABUSE, UNCOMPLICATED Status: Acute Current Visit: Yes - Problem List Review Problem List Initiated/Reviewed/Updated: Yes - My Orders Last 24 Hours: My Active Orders 01/21/17 17:00 cloNIDine [Catapres] 0.2 mg PO Q8H 01/22/17 10:30 Magnesium Oxide 800 mg PO DAILY 01/22/17 12:16 LORazepam [Ativan] 2 mg PO Q4HR PRN 01/23/17 05:00 BMP [BASIC METABOLIC PANEL,BMP] [CHEM] DAILY CBC WITH AUTO DIFF [HEME] DAILY MAGNESIUM [CHEM] DAILY 01/24/17 05:00 BMP [BASIC METABOLIC PANEL,BMP] [CHEM] DAILY CBC WITH AUTO DIFF [HEME] DAILY MAGNESIUM [CHEM] DAILY 01/28/17 09:00 Topiramate [Topamax] 50 mg PO BID - Plan Plan:: Impression: ETOH Dependence, withdrawal symptom with suicidal ideation and auditory hallucinations Marijuana Dependence Anxiety/Depression-new meds per Dr Didier LEVY urgently requested this weekend, discussed with counselor, Amanuel Holder, IV commitment. Paperwork completed post haste, notarized last night per Monica Federer Tobacco Dependence, intolerant to high dose habitrol at 21 mg daily Plan: IVF CIWA protocol Anti-anxiety meds, scheduled and prn Electrolyte replacement as needed. Suicide precaution Habitrol-decrease strength SW/PT/OT Involuntary commitment, pending DVT/GI prophylaxis LOS may exceed 96 hours, will require [facility] acceptance for IV commitment.
--- NOTE | 2017-01-22 14:04 | CONS ---
CONSULTING PHYSICIAN: Edinson Holder LAC DATE OF CONSULTATION: 01/22/2017 TIME: 12:54 p.m. HISTORY: The patient is a 46-year-old male, who was admitted to [facility] on 01/20/2017 following a suicide attempt by hanging. He is presenting with dual diagnosis, a JUAN MANUEL of 0.33 and his drug screen is positive for THC. A request for an alcohol and drug consultation was called in by his medical treatment team. SOURCE OF INFORMATION: Hospital records and patient's self report, background research and PDMR. HISTORY OF PRESENT ILLNESS: The patient reports that he was born and raised in [place], [place] by his biological parents. He has 5 siblings. His parents when he was 10 years old and he was raised primarily by his mother. His father worked for the police department in [place] and his mother was a nurse. The patient denies that he graduated from high school. He moved to [place] in 1996 and has been in the [place] ever since. He moved to [place] last year because he states the pay is better up here. 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 The patient reports he was at age 21 and the marriage lasted 3 years. He has 1 daughter from that marriage who lives in [place] with her mother. He had another long-term relationship for about 17 years, but never and had no children with this person. His ex-girlfriend lives in [place] and still communicates with the patient. He is currently living by himself in an apartment and states that he has not paid his rent for January and he is worried about that. His ex-girlfriend was apparently supposed to help him with that. The patient is currently involved in another relationship and his girlfriend is in [place]. This relationship serves as a basis for his ongoing emotional distress. The patient also reports that he was in the [employer] for 3 years and was honorably discharged by self report. The patient states that he likes to watch TV for relaxation and has no real mu-ism belief. SUBSTANCE ABUSE HISTORY: The patient reports that he started smoking marijuana at age 15 and started drinking at the age of 18. He states since age 18 he has continued in a regular pattern of drinking - 10 beers and smoking 3 joints after work every day. He states that his 1st was not concerned about his drinking or smoking because she was used to it. 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 He adds that on his days off, he will typically drink a case of beer with his regular 3 joints a day. During his 30s he reports drinking 12 beers on a working day and smoking 3 joints daily after work. Five years ago he went to treatment in [place] and was able to stay sober for a month. He states he goes back to drinking and smoking weed because he has insomnia and helps him sleep. The patient has been hospitalized for detox in the past as well as for psychiatric issues on an inpatient basis. It appears that the patient has dual diagnosis and the condition is ongoing. He reports that he has had limited periods of sobriety throughout his life. The longest time of sobriety was a month. 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 The patient is reporting experiencing moderate withdrawals including tremors and sweats. He states that he has detoxed with medical assistance and gone cold turkey in the past. The last time he quit drinking cold turkey was able to stay sober for a week. When asked if his employer knows he drinks and smokes weed, he says "they do not test." The patient reports that alcoholism and smoking marijuana runs in his family, primarily the males. He states that his father, grandfather and uncle all have problems with alcohol and/or smoking weed. The last time he smoked marijuana and drank was right before he was taken to the hospital. In summation, the patient has engaged in a regular pattern of drinking throughout his life time and smoking weed. He is verbalizing that he is not sure that he would like to change his substance abuse pattern. DIAGNOSES: The patient meets DSM 5 criteria for the following diagnoses. 1. F10.20, alcohol use disorder, severe. 2. F10.239, alcohol withdrawal without perceptual disturbance. 3. F10.229, alcohol intoxication. 4. F17.200, tobacco use disorder, severe. 5. F12.20, cannabis use disorder, severe. ASAM DIMENSIONS: Dimension 1: Score 2. The patient has some difficulty tolerating and coping with withdrawal discomfort. Intoxication may be severe, but responds to support and treatment. Dimension 2: Score 0. The patient displays full functioning with good ability to cope with physical discomfort. Dimension 3: Score 3. The patient displays a severe lack of impulse control and coping skills. Has frequent thoughts of suicide and means to carry out the plan. The patient is presenting as a dual diagnosis. Dimension 4: Score 3. The patient appears to have minimal awareness of his addiction or mental health disorder and is superficially cooperative. Dimension 5: Score 4. The patient has no awareness of the negative impact of his mental health problems for substance abuse. He appears to not have coping skills to arrest either his mental health or addiction or prevent relapse. Dimension 6: Score 3. The patient is living alone and has difficulty in his interpersonal relationships, he may or may not still be employed. ASSESSMENT SUMMARY: The patient presents with dual diagnosis, which appears to be ongoing and pervasive throughout his life as he reports past psychiatric and substance abuse treatment admissions. He seems to be having relationship issues presently which he reports is causing him emotional difficulty. He states he attempted suicide by hanging a month ago and this past weekend he attempted suicide again by hanging. He states that when he drinks he can become more depressed which is concerning as he drinks to fatal JUAN MANUEL's and smokes marijuana daily upwards of 10 to 12 plus beers and 3 joints daily. In assessing this patient, it seems his emotional state is tenuous and the trigger for his depression is his relationship without professional intervention and treatment, the combination of a continued depressive disorder exacerbated by relationship problems and excessive alcohol and marijuana use is reasonable cause to believe that there exists a serious risk of harm to this patient. I spoke with Dr. Cheema regarding the patient's evaluation and it was agreed that for the patient's safety and assistance with his dual diagnosis, a petition for involuntary commitment was necessary. RECOMMENDATION: The patient meets ASAM criteria for level 3.7, medically managed inpatient treatment. A petition for involuntary commitment was executed on 01/21/2017 for the [facility] or any admitting facility. I will talk to EVELIO Medley on Monday01/23/2017 regarding coordination of transportation and agency communications. [facility] /[id number]
[2017-01-22] MEDS: QUEtiapine 25 MG Tab PO SCH (21:10)
[2017-01-22] MEDS: Thiamine 100 MG Tab PO SCH (21:10)
[2017-01-22] MEDS: Sodium Chloride 0.9% 10 ML Syringe FLUSH PRN (21:11)
[2017-01-23] MEDS: cloNIDine 0.1 MG Tab PO SCH ×4 (01:36→20:24)
[2017-01-23] MEDS: Topiramate 25 MG Tab PO SCH ×2 (08:28→20:25)
[2017-01-23] MEDS: FLUoxetine 20 MG Cap PO SCH (08:28)
[2017-01-23] MEDS: Enoxaparin 40 MG/0.4 ML Syringe SUBCUT SCH (08:29)
[2017-01-23] MEDS: Nicotine 21 MG/24 Hr Patch TRDERM SCH (08:29)
[2017-01-23] MEDS: Folic Acid 1 MG Tab PO SCH (08:29)
[2017-01-23] MEDS: Magnesium Oxide 400 MG Tab PO SCH (08:35)
--- NOTE | 2017-01-23 10:53 | PCM.PN ---
- General Info Date of Service: 01/23/17 Functional Status: Reports: pain controlled, tolerating diet, ambulating, urinating - Review of Systems General: Reports: No Symptoms HEENT: Reports: no symptoms Pulmonary: Reports: no symptoms Cardiovascular: Reports: No Symptoms Gastrointestinal: Reports: No symptoms Genitourinary: Reports: no symptoms Musculoskeletal: Reports: no symptoms Skin: Reports: no symptoms Neurological: Reports: No Symptoms Psychiatric: Reports: no symptoms - Patient Data Vitals - most recent: Last Vital Signs Temp 36.3 C 01/23/17 07:41 Pulse 103 H 01/21/17 16:00 Resp 16 01/23/17 07:41 BP 127/75 01/23/17 10:18 Pulse Ox 100 01/23/17 07:41 Weight - most recent: 75.92 kg I&O - last 24 hours: Intake & Output 01/22/17 01/23/17 01/23/17 22:59 06:59 14:59 Intake Total 720 600 Output Total 300 300 Balance 420 300 Lab Results last 24 hrs: Laboratory Results - last 24 hr 01/23/17 01/23/17 Range/Units 06:09 06:09 WBC 6.36 (4.23-9.07) K/mm3 RBC 4.85 (4.63-6.08) M/mm3 Hgb 15.7 (13.7-17.5) gm/L Hct 46.5 (40.1-51.0) % MCV 95.9 H (79.0-92.2) fl MCH 32.4 H (25.7-32.2) pg MCHC 33.8 (32.2-35.5) g/dl RDW Std Deviation 44.8 H (35.1-43.9) fL Plt Count 192 (163-337) K/mm3 MPV 10.1 (9.4-12.3) fl Neut % (Auto) 51.4 (34.0-67.9) % Lymph % (Auto) 33.6 (21.8-53.1) % [place] % (Auto) 12.3 H (5.3-12.2) % Eos % (Auto) 1.9 (0.8-7.0) Baso % (Auto) 0.5 (0.1-1.2) % Neut # (Auto) 3.27 (1.78-5.38) K/mm3 Lymph # (Auto) 2.14 (1.32-3.57) K/mm3 [place] # (Auto) 0.78 (0.30-0.82) K/mm3 Eos # (Auto) 0.12 (0.04-0.54) K/mm3 Baso # (Auto) 0.03 (0.01-0.08) K/mm3 Sodium 140 (136-145) mEq/L Potassium 4.0 (3.5-5.1) mEq/L Chloride 106 (98-107) mEq/L Carbon Dioxide 23 (21-32) mEq/L Anion Gap 15.0 (5-15) BUN 8 (7-18) mg/dL Creatinine 1.0 (0.7-1.3) mg/dL Est Cr Clr Drug Dosing 89.30 mL/min Estimated GFR (MDRD) > 60 (>60) mL/min BUN/Creatinine Ratio 8.0 L (14-18) Glucose 98 (74-106) mg/dL Calcium 9.0 (8.5-10.1) mg/dL Magnesium 2.1 (1.8-2.4) mg/dl Med Orders - Current: Current Medications Chlordiazepoxide HCl (Librium) 25 mg PO TID PRN PRN Reason: Anxiety Last Admin: 01/22/17 11:50 Dose: 25 mg Clonidine HCl (Catapres) 0.1 mg PO Q12HR [facility] Last Admin: 01/23/17 10:09 Dose: 0.1 mg Enoxaparin Sodium (Lovenox) 40 mg SUBCUT DAILY [facility] Last Admin: 01/23/17 08:29 Dose: 40 mg Fluoxetine HCl (Prozac) 20 mg PO DAILY [facility] Last Admin: 01/23/17 08:28 Dose: 20 mg Folic Acid (Folic Acid) 1 mg PO DAILY [facility] Last Admin: 01/23/17 08:29 Dose: 1 mg Haloperidol Lactate (Haldol) 1 mg IVPUSH Q8H PRN PRN Reason: restlessness Last Admin: 01/21/17 00:12 Dose: 1 mg Lorazepam (Ativan) 1 mg IVPUSH Q6H PRN PRN Reason: Anxiety Last Admin: 01/21/17 02:40 Dose: 1 mg Lorazepam (Ativan) 1 mg IVPUSH Q2H PRN PRN Reason: Withdrawal Symptoms Last Admin: 01/21/17 14:20 Dose: 1 mg Lorazepam (Ativan) 2 mg PO Q4HR PRN PRN Reason: Anxiety Magnesium Oxide (Magnesium Oxide) 800 mg PO DAILY [facility] Last Admin: 01/23/17 08:35 Dose: 800 mg Metoprolol Tartrate (Lopressor) 5 mg IVPUSH Q6H PRN PRN Reason: heart rate>120 Miscellaneous Information (Remove Patch) 1 ea TRDERM DAILY [facility] Last Admin: 01/23/17 08:30 Dose: Not Given Nicotine (Habitrol) 21 mg TRDERM DAILY [facility] Last Admin: 01/23/17 08:29 Dose: 21 mg Nicotine Polacrilex (Nicorelief) 4 mg CHEW Q1H PRN PRN Reason: Other Last Admin: 01/21/17 00:11 Dose: 4 mg Quetiapine Fumarate (Seroquel) 50 mg PO BEDTIME [facility] Last Admin: 01/22/17 21:10 Dose: 50 mg Sodium Chloride (Saline Flush) 10 ml FLUSH ASDIRECTED PRN PRN Reason: Keep Vein Open Last Admin: 01/22/17 21:11 Dose: 10 ml Temazepam (Restoril) 15 mg PO BEDTIME PRN PRN Reason: Insomnia Thiamine HCl (Vitamin B-1) 100 mg PO BEDTIME [facility] Last Admin: 01/22/17 21:10 Dose: 100 mg Topiramate (Topamax) 25 mg PO BID [facility] Stop: 01/27/17 21:01 Last Admin: 01/23/17 08:28 Dose: 25 mg Topiramate (Topamax) 50 mg PO BID [facility] Discontinued Medications Clonidine HCl (Catapres) 0.1 mg PO Q12HR [facility] Last Admin: 01/21/17 08:08 Dose: 0.1 mg Clonidine HCl (Catapres) 0.2 mg PO Q8H [facility] Last Admin: 01/23/17 10:18 Dose: Not Given Sodium Chloride (Normal Saline) 2,000 mls @ 500 mls/hr IV ONETIME ONE Stop: 01/20/17 20:30 Last Infusion: 01/20/17 20:56 Dose: Infused Magnesium Sulfate 2 gm/ Premix 50 mls @ 25 mls/hr IV ONETIME ONE Stop: 01/20/17 22:23 Last Admin: 01/20/17 20:56 Dose: 25 mls/hr Lactated Ringer's (Ringers, Lactated) 1,000 mls @ 100 mls/hr IV ASDIRECTED STEPHEN Stop: 01/21/17 06:00 Magnesium Sulfate 2 gm/ Premix 50 mls @ 25 mls/hr IV ONETIME ONE Stop: 01/22/17 11:35 Last Admin: 01/22/17 10:40 Dose: Not Given Lorazepam (Ativan) 1 mg IVPUSH ONETIME ONE Stop: 01/20/17 16:31 Last Admin: 01/20/17 16:47 Dose: 1 mg Lorazepam (Ativan) 2 mg IVPUSH Q8H PRN PRN Reason: Anxiety Nicotine (Habitrol) 21 mg TRDERM ONETIME ONE Stop: 01/21/17 00:05 Last Admin: 01/21/17 00:12 Dose: 21 mg - Exam Quality Assessment: DVT prophylaxis General: alert, oriented, cooperative, no acute distress HEENT: Pupils equal, Pupils reactive, EOMI Neck: supple, trachea midline Lungs: Normal respiratory effort Cardiovascular: Regular Rate, Regular Rhythm Abdomen: bowel sounds present, soft, no tenderness, no distension (Male) Exam: Deferred Back Exam: Normal Inspection Extremities: normal pulses Skin: warm Neurological: no new focal deficit, normal gait, normal speech, cranial nerves intact Psy/Mental Status: alert, depressed - Problem List & Annotations (1) Anxiety and depression SNOMED Code(s): 714684216 Code(s): F41.9 - ANXIETY DISORDER, UNSPECIFIED; F32.9 - MAJOR DEPRESSIVE DISORDER, SINGLE EPISODE, UNSPECIFIED Status: Acute Current Visit: Yes (2) Alcohol abuse SNOMED Code(s): 78835480 Code(s): F10.10 - ALCOHOL ABUSE, UNCOMPLICATED Status: Acute Current Visit: Yes (3) Suicidal ideations SNOMED Code(s): 1681700, 519301476 Code(s): R45.851 - SUICIDAL IDEATIONS Status: Acute Current Visit: Yes (4) Marijuana abuse SNOMED Code(s): 75704616 Code(s): F12.10 - CANNABIS ABUSE, UNCOMPLICATED Status: Acute Current Visit: Yes - Problem List Review Problem List Initiated/Reviewed/Updated: Yes - My Orders Last 24 Hours: My Active Orders 01/22/17 10:30 Magnesium Oxide 800 mg PO DAILY 01/22/17 12:16 LORazepam [Ativan] 2 mg PO Q4HR PRN 01/23/17 09:45 cloNIDine [Catapres] 0.1 mg PO Q12HR 01/24/17 05:00 BMP [BASIC METABOLIC PANEL,BMP] [CHEM] DAILY CBC WITH AUTO DIFF [HEME] DAILY MAGNESIUM [CHEM] DAILY 01/28/17 09:00 Topiramate [Topamax] 50 mg PO BID - Plan Plan:: Impression: ETOH Dependence, withdrawal symptom with suicidal ideation and auditory hallucinations; decreased CIWA Marijuana Dependence Anxiety/Depression-new meds per Dr Didier LEVY urgently requested this weekend, discussed with counselor, Amanuel Holder, IV commitment. Paperwork completed post haste, notarized last night per Monica Murphy [facility], no beds available; will need [facility]; declined by [facility]. Tobacco Dependence, intolerant to high dose habitrol at 21 mg daily Plan: IVF CIWI protocol Anti-anxiety meds, scheduled and prn Electrolyte replacement as needed. Suicide precaution Habitrol-decrease strength SW/PT/OT Involuntary commitment, pending DVT/GI prophylaxis LOS >96 hours, continued treatment while awaiting bed at [facility]..
[2017-01-23] MEDS: chlordiazePOXIDE 25 MG Cap PO PRN (20:25)
[2017-01-23] MEDS: QUEtiapine 25 MG Tab PO SCH (20:25)
[2017-01-23] MEDS: Thiamine 100 MG Tab PO SCH (20:25)
[2017-01-24] MEDS: LORazepam 2 MG/ML MDV IVPUSH PRN (00:40)
[2017-01-24] MEDS: Enoxaparin 40 MG/0.4 ML Syringe SUBCUT SCH (09:01)
[2017-01-24] MEDS: Nicotine 21 MG/24 Hr Patch TRDERM SCH (09:02)
[2017-01-24] MEDS: Magnesium Oxide 400 MG Tab PO SCH (09:02)
[2017-01-24] MEDS: Folic Acid 1 MG Tab PO SCH (09:02)
[2017-01-24] MEDS: cloNIDine 0.1 MG Tab PO SCH ×2 (09:03→20:45)
[2017-01-24] MEDS: FLUoxetine 20 MG Cap PO SCH (09:03)
[2017-01-24] MEDS: Topiramate 25 MG Tab PO SCH ×2 (09:03→20:47)
--- NOTE | 2017-01-24 10:25 | PCM.PN ---
- General Info Date of Service: 01/24/17 Functional Status: Reports: pain controlled, tolerating diet, ambulating, urinating - Review of Systems General: Reports: No Symptoms HEENT: Reports: no symptoms Pulmonary: Reports: no symptoms Cardiovascular: Reports: No Symptoms Gastrointestinal: Reports: No symptoms Genitourinary: Reports: no symptoms Musculoskeletal: Reports: no symptoms Skin: Reports: no symptoms Neurological: Reports: No Symptoms Psychiatric: Reports: no symptoms - Patient Data Vitals - most recent: Last Vital Signs Temp 36.3 C 01/24/17 08:00 Pulse 73 01/24/17 08:00 Resp 17 01/24/17 08:00 BP 110/71 01/24/17 09:03 Pulse Ox 100 01/24/17 08:00 Weight - most recent: 76.249 kg I&O - last 24 hours: Intake & Output 01/23/17 01/24/17 01/24/17 22:59 06:59 14:59 Intake Total 740 600 Balance 740 600 Lab Results last 24 hrs: Laboratory Results - last 24 hr 01/24/17 01/24/17 Range/Units 05:50 05:50 WBC 7.38 (4.23-9.07) K/mm3 RBC 5.00 (4.63-6.08) M/mm3 Hgb 16.2 (13.7-17.5) gm/L Hct 47.9 (40.1-51.0) % MCV 95.8 H (79.0-92.2) fl MCH 32.4 H (25.7-32.2) pg MCHC 33.8 (32.2-35.5) g/dl RDW Std Deviation 44.7 H (35.1-43.9) fL Plt Count 199 (163-337) K/mm3 MPV 9.9 (9.4-12.3) fl Neut % (Auto) 54.8 (34.0-67.9) % Lymph % (Auto) 29.8 (21.8-53.1) % [place] % (Auto) 12.7 H (5.3-12.2) % Eos % (Auto) 2.0 (0.8-7.0) Baso % (Auto) 0.4 (0.1-1.2) % Neut # (Auto) 4.04 (1.78-5.38) K/mm3 Lymph # (Auto) 2.20 (1.32-3.57) K/mm3 [place] # (Auto) 0.94 H (0.30-0.82) K/mm3 Eos # (Auto) 0.15 (0.04-0.54) K/mm3 Baso # (Auto) 0.03 (0.01-0.08) K/mm3 Sodium 139 (136-145) mEq/L Potassium 3.9 (3.5-5.1) mEq/L Chloride 106 (98-107) mEq/L Carbon Dioxide 22 (21-32) mEq/L Anion Gap 14.9 (5-15) BUN 10 (7-18) mg/dL Creatinine 1.0 (0.7-1.3) mg/dL Est Cr Clr Drug Dosing 89.30 mL/min Estimated GFR (MDRD) > 60 (>60) mL/min BUN/Creatinine Ratio 10.0 L (14-18) Glucose 91 (74-106) mg/dL Calcium 9.0 (8.5-10.1) mg/dL Magnesium 2.3 (1.8-2.4) mg/dl Med Orders - Current: Current Medications Chlordiazepoxide HCl (Librium) 25 mg PO TID PRN PRN Reason: Anxiety Last Admin: 01/23/17 20:25 Dose: 25 mg Clonidine HCl (Catapres) 0.1 mg PO Q12HR [facility] Last Admin: 01/24/17 09:03 Dose: Not Given Enoxaparin Sodium (Lovenox) 40 mg SUBCUT DAILY [facility] Last Admin: 01/24/17 09:01 Dose: 40 mg Fluoxetine HCl (Prozac) 20 mg PO DAILY [facility] Last Admin: 01/24/17 09:03 Dose: 20 mg Folic Acid (Folic Acid) 1 mg PO DAILY [facility] Last Admin: 01/24/17 09:02 Dose: 1 mg Haloperidol Lactate (Haldol) 1 mg IVPUSH Q8H PRN PRN Reason: restlessness Last Admin: 01/21/17 00:12 Dose: 1 mg Lorazepam (Ativan) 1 mg IVPUSH Q6H PRN PRN Reason: Anxiety Last Admin: 01/24/17 00:40 Dose: 1 mg Lorazepam (Ativan) 1 mg IVPUSH Q2H PRN PRN Reason: Withdrawal Symptoms Last Admin: 01/21/17 14:20 Dose: 1 mg Lorazepam (Ativan) 2 mg PO Q4HR PRN PRN Reason: Anxiety Magnesium Oxide (Magnesium Oxide) 800 mg PO DAILY [facility] Last Admin: 01/24/17 09:02 Dose: 800 mg Metoprolol Tartrate (Lopressor) 5 mg IVPUSH Q6H PRN PRN Reason: heart rate>120 Miscellaneous Information (Remove Patch) 1 ea TRDERM DAILY [facility] Last Admin: 01/24/17 09:05 Dose: 1 ea Nicotine (Habitrol) 21 mg TRDERM DAILY [facility] Last Admin: 01/24/17 09:02 Dose: 21 mg Nicotine Polacrilex (Nicorelief) 4 mg CHEW Q1H PRN PRN Reason: Other Last Admin: 01/21/17 00:11 Dose: 4 mg Quetiapine Fumarate (Seroquel) 50 mg PO BEDTIME [facility] Last Admin: 01/23/17 20:25 Dose: 50 mg Sodium Chloride (Saline Flush) 10 ml FLUSH ASDIRECTED PRN PRN Reason: Keep Vein Open Last Admin: 01/22/17 21:11 Dose: 10 ml Temazepam (Restoril) 15 mg PO BEDTIME PRN PRN Reason: Insomnia Thiamine HCl (Vitamin B-1) 100 mg PO BEDTIME [facility] Last Admin: 01/23/17 20:25 Dose: 100 mg Topiramate (Topamax) 25 mg PO BID [facility] Stop: 01/27/17 21:01 Last Admin: 01/24/17 09:03 Dose: 25 mg Topiramate (Topamax) 50 mg PO BID [facility] Discontinued Medications Clonidine HCl (Catapres) 0.1 mg PO Q12HR [facility] Last Admin: 01/21/17 08:08 Dose: 0.1 mg Clonidine HCl (Catapres) 0.2 mg PO Q8H [facility] Last Admin: 01/23/17 10:18 Dose: Not Given Sodium Chloride (Normal Saline) 2,000 mls @ 500 mls/hr IV ONETIME ONE Stop: 01/20/17 20:30 Last Infusion: 01/20/17 20:56 Dose: Infused Magnesium Sulfate 2 gm/ Premix 50 mls @ 25 mls/hr IV ONETIME ONE Stop: 01/20/17 22:23 Last Admin: 01/20/17 20:56 Dose: 25 mls/hr Lactated Ringer's (Ringers, Lactated) 1,000 mls @ 100 mls/hr IV ASDIRECTED [facility] Stop: 01/21/17 06:00 Magnesium Sulfate 2 gm/ Premix 50 mls @ 25 mls/hr IV ONETIME ONE Stop: 01/22/17 11:35 Last Admin: 01/22/17 10:40 Dose: Not Given Lorazepam (Ativan) 1 mg IVPUSH ONETIME ONE Stop: 01/20/17 16:31 Last Admin: 01/20/17 16:47 Dose: 1 mg Lorazepam (Ativan) 2 mg IVPUSH Q8H PRN PRN Reason: Anxiety Nicotine (Habitrol) 21 mg TRDERM ONETIME ONE Stop: 01/21/17 00:05 Last Admin: 01/21/17 00:12 Dose: 21 mg - Exam Quality Assessment: DVT prophylaxis General: alert, oriented, cooperative, no acute distress HEENT: Pupils equal, Pupils reactive, EOMI Neck: supple, trachea midline Lungs: Normal respiratory effort Cardiovascular: Regular Rate Abdomen: bowel sounds present, soft, no tenderness, no distension (Male) Exam: Deferred Back Exam: Normal Inspection Extremities: normal pulses Skin: warm Neurological: no new focal deficit, normal gait, normal speech Psy/Mental Status: alert, normal affect, normal mood - Problem List & Annotations (1) Anxiety and depression SNOMED Code(s): 882898182 Code(s): F41.9 - ANXIETY DISORDER, UNSPECIFIED; F32.9 - MAJOR DEPRESSIVE DISORDER, SINGLE EPISODE, UNSPECIFIED Status: Acute Current Visit: Yes (2) Alcohol abuse SNOMED Code(s): 74512952 Code(s): F10.10 - ALCOHOL ABUSE, UNCOMPLICATED Status: Acute Current Visit: Yes (3) Suicidal ideations SNOMED Code(s): 1964055, 740881419 Code(s): R45.851 - SUICIDAL IDEATIONS Status: Acute Current Visit: Yes (4) Marijuana abuse SNOMED Code(s): 90815001 Code(s): F12.10 - CANNABIS ABUSE, UNCOMPLICATED Status: Acute Current Visit: Yes - Problem List Review Problem List Initiated/Reviewed/Updated: Yes - My Orders Last 24 Hours: My Active Orders 01/23/17 09:45 cloNIDine [Catapres] 0.1 mg PO Q12HR 01/23/17 13:51 CARBOXY-THC BY GC/MS Routine 01/28/17 09:00 Topiramate [Topamax] 50 mg PO BID - Plan Plan:: Impression: ETOH Dependence, withdrawal symptom with suicidal ideation and auditory hallucinations-resolved; minimal CIWA Marijuana Dependence Anxiety/Depression-new meds per Dr Didier LEVY urgently requested this weekend, discussed with counselor, Amanuel Holder, IV commitment. Paperwork completed post haste, [facility], no beds available; will need [facility]; declined by [facility]. Tobacco Dependence, continue habitrol. Plan: IVF CIWA protocol Anti-anxiety meds, scheduled and prn Electrolyte replacement as needed. Suicide precaution Habitrol-decrease strength SW/PT/OT Involuntary commitment, pending DVT/GI prophylaxis LOS >96 hours, continued treatment while awaiting bed at [facility].. Has been accepted for a bed at [facility], discussed with Dr Shields.
[2017-01-24] MEDS: QUEtiapine 25 MG Tab PO SCH (20:44)
[2017-01-24] MEDS: Thiamine 100 MG Tab PO SCH (20:44)
--- NOTE | 2017-01-25 07:05 | PCM.DCSUM1 ---
<Elyse Del Toro M - Last Filed: 01/25/17 07:00> Discharge Summary - Hospital Course Free Text/Narrative:: 46 year old male with relationship difficulties, ETOH abuse/dependence presented to ED in Police Custody after stating that he tried to hurt himself. He has been scheduled for an evaluation by Dr Velásquez, and a request for the substance abuse counselor will be made for this weekend. Expeditious evaluation is sought for treatment, the patient stated that he wanted help in the ED. An involuntary commitment was initially discussed in the ED, this was not completed. Thus ETOH withdrawal and subsequent treatment will be initiated. He is originally from [place], has lived extensively in [place], [place]. He is currently working in [place], [place] with minimal emotional support. He has attempted suicide by trying to hang from a shower ally; on presentation today, he mentioned that he wanted to kill himself because he has had trouble with his current girlfriend. He has a history of substnace abuse with ETOH and marijuana. ETOH level at the time of presentation, 0.33. UDS is presumptively positive. The patient has previously had IP treatment. Denies blacking out, or alcohol withdrawal seizures. He was admitted to ICU, maintained on CIWA protocol with ativan PRN, librium, topamax, seroquel. Psychiatry, Dr. Velásquez was consulted with medication recommendations/orders. Edinson Holder LAC was consulted who committed patient for drug treatment. He went through mild detox symptoms without complications. He was transferred out of the unit to [facility]. He will be discharged today to [facility] in [place] with Law Enforcement to transport. - Discharge Data Discharge Date: 01/25/17 (admit date 01/20/17) Discharge Disposition: DC/Tfer to Inpt Rehab Fac 62 Condition: Good - Patient Summary/Data Operative Procedure(s) Performed: None Complications: None Consults: Consultations 01/21/17 09:00 Consult to Physician [CONS] Routine 01/21/17 10:00 Consult for Substance Abuse [CONS] Routine 01/21/17 11:07 Consult for Substance Abuse [CONS] Routine Consult to Spiritual Care [CONS] Routine Labs Pending at D/C: None Recommended Follow-up Testing/Procedures: Follow up with Psychiatry in 2-4 wks from discharge from inpatient treatment center. Follow up with PCP within 1 week of discharge from tx center. Planned Operative Procedure(s) after DC: None Hospital Course: As above - Patient Instructions Diet: Usual Diet as Tolerated, Drink 8-10+ Glasses/Day, No Alcoholic Beverages Activity: As Tolerated Driving: Do Not Drive Showering/Bathing: May Shower Notify Provider of: Fever, Increased Pain, Swelling and Redness, Nausea and/or Vomiting - Discharge Plan Prescriptions/Med Rec: FLUoxetine [PROzac] 20 mg PO DAILY #30 cap Folic Acid 1 mg PO DAILY #30 tablet Magnesium Oxide 800 mg PO DAILY #30 tablet Nicotine [Habitrol] 21 mg TRDERM DAILY #30 patch QUEtiapine [SEROquel] 50 mg PO BEDTIME #30 tablet Thiamine [Vitamin B-1] 100 mg PO BEDTIME #30 tablet Home Medications: Home Meds FLUoxetine [PROzac] 20 mg PO DAILY #30 cap 01/25/17 [Rx] Folic Acid 1 mg PO DAILY #30 tablet 01/25/17 [Rx] Magnesium Oxide 800 mg PO DAILY #30 tablet 01/25/17 [Rx] Nicotine [Habitrol] 21 mg TRDERM DAILY #30 patch 01/25/17 [Rx] QUEtiapine [SEROquel] 50 mg PO BEDTIME #30 tablet 01/25/17 [Rx] Thiamine [Vitamin B-1] 100 mg PO BEDTIME #30 tablet 01/25/17 [Rx] Patient Handouts: Smoking Cessation, Tips for Success, [id number], Suicidal Feelings: How to Help Yourself, Alcohol Intoxication, [id number], Alcohol Withdrawal, [id number] Forms: ED Department Discharge Referrals: PCP,None [Primary Care Provider] - - Discharge Summary/Plan Comment DC Time >30 min.: Yes (40) - General Info Date of Service: 01/25/17 Admission Dx/Problem (Free Text: Admission Diagnosis/Problem Admission Diagnosis/Problem Alcohol abuse Functional Status: Reports: pain controlled, tolerating diet, ambulating, urinating, new symptoms - Review of Systems General: Reports: No Symptoms HEENT: Reports: no symptoms Pulmonary: Reports: no symptoms Cardiovascular: Reports: No Symptoms Gastrointestinal: Reports: No symptoms Genitourinary: Reports: no symptoms Musculoskeletal: Reports: no symptoms Skin: Reports: no symptoms Neurological: Reports: No Symptoms Psychiatric: Reports: no symptoms - Patient Data Vitals - Most Recent: Last Vital Signs Temp 97.2 F 01/25/17 05:50 Pulse 65 01/25/17 05:50 Resp 16 01/25/17 05:50 BP 99/70 01/25/17 05:50 Pulse Ox 99 01/25/17 05:50 Weight - Most Recent: 72.983 kg I&O - Last 24 hours: Intake & Output 01/24/17 01/25/17 01/25/17 22:59 06:59 14:59 Intake Total 480 250 Balance 480 250 Lab Results - Last 24 hrs: Laboratory Results - last 24 hr 01/24/17 Range/Units 11:26 POC Glucose 131 H (70-105) mg/dL Med Orders - Current: Current Medications Chlordiazepoxide HCl (Librium) 25 mg PO TID PRN PRN Reason: Anxiety Last Admin: 01/23/17 20:25 Dose: 25 mg Clonidine HCl (Catapres) 0.1 mg PO Q12HR [facility] Last Admin: 01/24/17 20:45 Dose: Not Given Enoxaparin Sodium (Lovenox) 40 mg SUBCUT DAILY [facility] Last Admin: 01/24/17 09:01 Dose: 40 mg Fluoxetine HCl (Prozac) 20 mg PO DAILY [facility] Last Admin: 01/24/17 09:03 Dose: 20 mg Folic Acid (Folic Acid) 1 mg PO DAILY [facility] Last Admin: 01/24/17 09:02 Dose: 1 mg Haloperidol Lactate (Haldol) 1 mg IVPUSH Q8H PRN PRN Reason: restlessness Last Admin: 01/21/17 00:12 Dose: 1 mg Lorazepam (Ativan) 1 mg IVPUSH Q6H PRN PRN Reason: Anxiety Last Admin: 01/24/17 00:40 Dose: 1 mg Lorazepam (Ativan) 1 mg IVPUSH Q2H PRN PRN Reason: Withdrawal Symptoms Last Admin: 01/21/17 14:20 Dose: 1 mg Lorazepam (Ativan) 2 mg PO Q4HR PRN PRN Reason: Anxiety Magnesium Oxide (Magnesium Oxide) 800 mg PO DAILY [facility] Last Admin: 01/24/17 09:02 Dose: 800 mg Metoprolol Tartrate (Lopressor) 5 mg IVPUSH Q6H PRN PRN Reason: heart rate>120 Miscellaneous Information (Remove Patch) 1 ea TRDERM DAILY [facility] Last Admin: 01/24/17 09:05 Dose: 1 ea Nicotine (Habitrol) 21 mg TRDERM DAILY [facility] Last Admin: 01/24/17 09:02 Dose: 21 mg Nicotine Polacrilex (Nicorelief) 4 mg CHEW Q1H PRN PRN Reason: Other Last Admin: 01/21/17 00:11 Dose: 4 mg Quetiapine Fumarate (Seroquel) 50 mg PO BEDTIME [facility] Last Admin: 01/24/17 20:44 Dose: 50 mg Sodium Chloride (Saline Flush) 10 ml FLUSH ASDIRECTED PRN PRN Reason: Keep Vein Open Last Admin: 01/22/17 21:11 Dose: 10 ml Temazepam (Restoril) 15 mg PO BEDTIME PRN PRN Reason: Insomnia Thiamine HCl (Vitamin B-1) 100 mg PO BEDTIME [facility] Last Admin: 01/24/17 20:44 Dose: 100 mg Topiramate (Topamax) 25 mg PO BID [facility] Stop: 01/27/17 21:01 Last Admin: 01/24/17 20:47 Dose: 25 mg Topiramate (Topamax) 50 mg PO BID [facility] Discontinued Medications Clonidine HCl (Catapres) 0.1 mg PO Q12HR [facility] Last Admin: 01/21/17 08:08 Dose: 0.1 mg Clonidine HCl (Catapres) 0.2 mg PO Q8H [facility] Last Admin: 01/23/17 10:18 Dose: Not Given Sodium Chloride (Normal Saline) 2,000 mls @ 500 mls/hr IV ONETIME ONE Stop: 01/20/17 20:30 Last Infusion: 01/20/17 20:56 Dose: Infused Magnesium Sulfate 2 gm/ Premix 50 mls @ 25 mls/hr IV ONETIME ONE Stop: 01/20/17 22:23 Last Admin: 01/20/17 20:56 Dose: 25 mls/hr Lactated Ringer's (Ringers, Lactated) 1,000 mls @ 100 mls/hr IV ASDIRECTED STEPHEN Stop: 01/21/17 06:00 Magnesium Sulfate 2 gm/ Premix 50 mls @ 25 mls/hr IV ONETIME ONE Stop: 01/22/17 11:35 Last Admin: 01/22/17 10:40 Dose: Not Given Lorazepam (Ativan) 1 mg IVPUSH ONETIME ONE Stop: 01/20/17 16:31 Last Admin: 01/20/17 16:47 Dose: 1 mg Lorazepam (Ativan) 2 mg IVPUSH Q8H PRN PRN Reason: Anxiety Nicotine (Habitrol) 21 mg TRDERM ONETIME ONE Stop: 01/21/17 00:05 Last Admin: 01/21/17 00:12 Dose: 21 mg - Exam Quality Assessment: Reports: DVT prophylaxis General: Reports: alert, oriented, cooperative, no acute distress HEENT: Reports: Pupils equal, Pupils reactive, EOMI, Mucous membr. moist/pink Neck: Reports: supple Lungs: Reports: Clear to auscultation, Normal respiratory effort Cardiovascular: Reports: Regular Rate, Regular Rhythm Abdomen: Reports: bowel sounds present, soft, no tenderness, no distension (Male) Exam: Deferred Rectal (Males) Exam: Deferred Neurological: Reports: no new focal deficit Psy/Mental Status: Reports: alert, normal affect, normal mood *Q Meaningful Use (DIS) - VTE *Q VTE Criteria *Q: - Stroke *Q Stroke Criteria *Q: - AMI *Q AMI Criteria *Q: <Rupa Cheema - Last Filed: 01/25/17 07:12> Discharge Summary - Hospital Course Free Text/Narrative:: See above for treatment plan, DC to [facility]. - Discharge Diagnosis/Problem(s) (1) Anxiety and depression SNOMED Code(s): 697882346 ICD Code: F41.9 - ANXIETY DISORDER, UNSPECIFIED; F32.9 - MAJOR DEPRESSIVE DISORDER, SINGLE EPISODE, UNSPECIFIED Status: Acute Current Visit: Yes (2) Alcohol abuse SNOMED Code(s): 80688994 ICD Code: F10.10 - ALCOHOL ABUSE, UNCOMPLICATED Status: Acute Current Visit: Yes (3) Suicidal ideations SNOMED Code(s): 9587616, 244446713 ICD Code: R45.851 - SUICIDAL IDEATIONS Status: Acute Current Visit: Yes (4) Marijuana abuse SNOMED Code(s): 68979730 ICD Code: F12.10 - CANNABIS ABUSE, UNCOMPLICATED Status: Acute Current Visit: Yes - Patient Summary/Data Consults: Consultations 01/21/17 09:00 Consult to Physician [CONS] Routine 01/21/17 10:00 Consult for Substance Abuse [CONS] Routine 01/21/17 11:07 Consult for Substance Abuse [CONS] Routine Consult to Spiritual Care [CONS] Routine - Patient Data Vitals - Most Recent: Last Vital Signs Temp 36.2 C 01/25/17 05:50 Pulse 65 01/25/17 05:50 Resp 16 01/25/17 05:50 BP 99/70 01/25/17 05:50 Pulse Ox 99 01/25/17 05:50 I&O - Last 24 hours: Intake & Output 01/24/17 01/25/17 01/25/17 22:59 06:59 14:59 Intake Total 480 250 Balance 480 250 Lab Results - Last 24 hrs: Laboratory Results - last 24 hr 01/24/17 Range/Units 11:26 POC Glucose 131 H (70-105) mg/dL Med Orders - Current: Current Medications Chlordiazepoxide HCl (Librium) 25 mg PO TID PRN PRN Reason: Anxiety Last Admin: 01/23/17 20:25 Dose: 25 mg Clonidine HCl (Catapres) 0.1 mg PO Q12HR [facility] Last Admin: 01/24/17 20:45 Dose: Not Given Enoxaparin Sodium (Lovenox) 40 mg SUBCUT DAILY [facility] Last Admin: 01/24/17 09:01 Dose: 40 mg Fluoxetine HCl (Prozac) 20 mg PO DAILY [facility] Last Admin: 01/24/17 09:03 Dose: 20 mg Folic Acid (Folic Acid) 1 mg PO DAILY [facility] Last Admin: 01/24/17 09:02 Dose: 1 mg Haloperidol Lactate (Haldol) 1 mg IVPUSH Q8H PRN PRN Reason: restlessness Last Admin: 01/21/17 00:12 Dose: 1 mg Lorazepam (Ativan) 1 mg IVPUSH Q6H PRN PRN Reason: Anxiety Last Admin: 01/24/17 00:40 Dose: 1 mg Lorazepam (Ativan) 1 mg IVPUSH Q2H PRN PRN Reason: Withdrawal Symptoms Last Admin: 01/21/17 14:20 Dose: 1 mg Lorazepam (Ativan) 2 mg PO Q4HR PRN PRN Reason: Anxiety Magnesium Oxide (Magnesium Oxide) 800 mg PO DAILY [facility] Last Admin: 01/24/17 09:02 Dose: 800 mg Metoprolol Tartrate (Lopressor) 5 mg IVPUSH Q6H PRN PRN Reason: heart rate>120 Miscellaneous Information (Remove Patch) 1 ea TRDERM DAILY [facility] Last Admin: 01/24/17 09:05 Dose: 1 ea Nicotine (Habitrol) 21 mg TRDERM DAILY [facility] Last Admin: 01/24/17 09:02 Dose: 21 mg Nicotine Polacrilex (Nicorelief) 4 mg CHEW Q1H PRN PRN Reason: Other Last Admin: 01/21/17 00:11 Dose: 4 mg Quetiapine Fumarate (Seroquel) 50 mg PO BEDTIME [facility] Last Admin: 01/24/17 20:44 Dose: 50 mg Sodium Chloride (Saline Flush) 10 ml FLUSH ASDIRECTED PRN PRN Reason: Keep Vein Open Last Admin: 01/22/17 21:11 Dose: 10 ml Temazepam (Restoril) 15 mg PO BEDTIME PRN PRN Reason: Insomnia Thiamine HCl (Vitamin B-1) 100 mg PO BEDTIME [facility] Last Admin: 01/24/17 20:44 Dose: 100 mg Topiramate (Topamax) 25 mg PO BID [facility] Stop: 01/27/17 21:01 Last Admin: 01/24/17 20:47 Dose: 25 mg Topiramate (Topamax) 50 mg PO BID [facility] Discontinued Medications Clonidine HCl (Catapres) 0.1 mg PO Q12HR [facility] Last Admin: 01/21/17 08:08 Dose: 0.1 mg Clonidine HCl (Catapres) 0.2 mg PO Q8H [facility] Last Admin: 01/23/17 10:18 Dose: Not Given Sodium Chloride (Normal Saline) 2,000 mls @ 500 mls/hr IV ONETIME ONE Stop: 01/20/17 20:30 Last Infusion: 01/20/17 20:56 Dose: Infused Magnesium Sulfate 2 gm/ Premix 50 mls @ 25 mls/hr IV ONETIME ONE Stop: 01/20/17 22:23 Last Admin: 01/20/17 20:56 Dose: 25 mls/hr Lactated Ringer's (Ringers, Lactated) 1,000 mls @ 100 mls/hr IV ASDIRECTED STEPHEN Stop: 01/21/17 06:00 Magnesium Sulfate 2 gm/ Premix 50 mls @ 25 mls/hr IV ONETIME ONE Stop: 01/22/17 11:35 Last Admin: 01/22/17 10:40 Dose: Not Given Lorazepam (Ativan) 1 mg IVPUSH ONETIME ONE Stop: 01/20/17 16:31 Last Admin: 01/20/17 16:47 Dose: 1 mg Lorazepam (Ativan) 2 mg IVPUSH Q8H PRN PRN Reason: Anxiety Nicotine (Habitrol) 21 mg TRDERM ONETIME ONE Stop: 01/21/17 00:05 Last Admin: 01/21/17 00:12 Dose: 21 mg *Q Meaningful Use (DIS) - VTE *Q VTE Criteria *Q: - Stroke *Q Stroke Criteria *Q: - AMI *Q AMI Criteria *Q:
[2017-01-25 08:13] VITALS: BP 110/64
[2017-01-25] MEDS: chlordiazePOXIDE 25 MG Cap PO PRN (08:23)
[2017-01-25] MEDS: Folic Acid 1 MG Tab PO SCH (08:24)
[2017-01-25] MEDS: Enoxaparin 40 MG/0.4 ML Syringe SUBCUT SCH (08:24)
[2017-01-25] MEDS: FLUoxetine 20 MG Cap PO SCH (08:25)
[2017-01-25] MEDS: Magnesium Oxide 400 MG Tab PO SCH (08:26)
[2017-01-25] MEDS: Topiramate 25 MG Tab PO SCH (08:26)
[2017-01-25] MEDS: cloNIDine 0.1 MG Tab PO SCH (08:26)
[2017-01-25] MEDS: Nicotine 21 MG/24 Hr Patch TRDERM SCH (08:27)
[2017-01-25] MEDS: LORazepam 2 MG/ML MDV IVPUSH PRN (08:30)
[2017-01-28] MEDS ORDERED: Topiramate 25 MG Tab PO SCH (09:00)
== END 2017-01-25 09:10 | DRG 897 ==
LOC: JD.ED 15:28 → JD.ICU 19:39 → JD.MS 01-24 18:00
PROVIDERS: ADMIT Internal Medicine Cardiovascular Disease; ATTEND Internal Medicine Cardiovascular Disease
PROC: HZ2ZZZZ Detoxification Services for Substance Abuse Treatment (ICD-10-PCS; principal; 2017-01-20)
DX: F10.239 Alcohol dependence with withdrawal, unspecified (principal); R45.851 Suicidal ideations; F41.8 Other specified anxiety disorders; F12.10 Cannabis abuse, uncomplicated; F17.210 Nicotine dependence, cigarettes, uncomplicated; Y90.0 Blood alcohol level of less than 20 mg/100 ml
CPT/HCPCS: 36415; 80048; 80053; 80306; 80349; 82962; 83735; 84443; 85025; 85610; 93005; 96361; 96374; 99223; 99232; 99239; 99284; 99285-25; A9270-GY; G0480; J1630; J1650; J2060; J3475; J7040; J7050